=== PATIENT | female | born 1985 | race Caucasian/White ===

== ENCOUNTER → 2020-10-06 12:41 | Outpatient (CLI) | payer BC, SELFPAY ==
--- NOTE | ~2020-10-06 | US_ITS ---
EXAMINATION: US thyroid DATE: 10/06/2020 12:54 INDICATION: Nontoxic goiter, unspecified. TECHNIQUE: Multiple ultrasound images of the thyroid were obtained. COMPARISON: None. FINDINGS: The right thyroid lobe measures 4.7 x 1.5 x 1.4 cm. The left thyroid lobe measures 4.5 x 1.5 x 1.2 c m. In the right thyroid lobe, there is a 7 mm solid, hypoechoic, [id number] nodule with ill-def ined margin without echogenic foci (TI-RADS TR4). IMPRESSION: 1. Small thyroid nodule, likely not clinically significant. No follow-up is needed. Reviewed, dictated and finalized at location A. IMPRESSION: 1. Small thyroid nodule, likely not clinically significant. No follow-up is nee ded.
== END ==
PROVIDERS: Visit Provider Internal Medicine Endocrinology, Diabetes & Metabolism
DX: E04.1 Nontoxic single thyroid nodule (principal)
CPT/HCPCS: 76536

== ENCOUNTER → 2022-03-29 13:50 | Outpatient (CLI) | payer BC, SELFPAY ==
--- NOTE | ~2022-03-29 | US_ITS ---
EXAMINATION: US pelvic complete DATE: 03/29/2022 14:08 INDICATION: Pelvic pain. Right lower quadrant pain. Comparison:02/15/2012 TECHNIQUE: Multiple transabdominal sonographic images of the pelvis performed. FINDINGS: The uterus measures 11.5 x 3 x 4.8 cm. The endometrial complex measures 8 mm. The right ovary measures 3.3 x 2 x 2.4 cm and the left ovary measures 2.8 x 1.9 x 2.2 cm. There are small follicles in each ovary. Normal doppler signal in both ovaries. There is no free fluid in the pelvis. There are no abnormal masses seen on either side. IMPRESSION: 1. Normal pelvic ultrasound. Reviewed, dictated and finalized at location B. OR INSPECTOR
== END ==
PROVIDERS: PCP Nurse Practitioner Family; Visit Provider Advanced Practice Midwife
DX: R10.2 Pelvic and perineal pain (principal)
CPT/HCPCS: 76856

== ENCOUNTER 2023-04-18 13:48 | Outpatient (CLI) | payer OTHER, SELFPAY ==
--- NOTE | ~2023-04-18 | US_ITS ---
EXAMINATION: US transvaginal DATE: 04/18/2023 14:19 INDICATION: Dysmenorrhea with irregular menstruation TECHNIQUE: Multiple transabdominal and endovaginal sonographic images of the pelvis were obtained. COMPARISON: None. FINDINGS: The uterus measures 9.2 x 4.3 x 5.2 cm. The endometrial complex measures 12 mm in thickness. There a re 3 small anechoic nabothian cysts at the cervix largest measuring 7 mm in maximal diameter. There i s a small amount of anechoic fluid within the endocervical canal which measures up to 2 mm in maximal width. The right ovary measures 3.4 x 2.8 x 3.0 cm. There is are a few anechoic cysts/follicles in t he right ovary the largest measuring 2.3 cm. The left ovary measures 2.3 x 2.1 x 1.6 cm. There is nor mal vascular flow in the ovaries. There is no free fluid in the pelvis. IMPRESSION: 1. Minimal fluid within the endocervical canal along with a few anechoic nabothian cysts at the cervi x and right ovarian cysts/follicles. Reviewed, dictated and finalized at location B. IMPRESSION: 1. Minimal fluid within the endocervical canal along with a few anechoic naboth minda cysts at the cervix and right ovarian cysts/follicles.
== END 2023-04-18 13:49 ==
PROVIDERS: PCP Internal Medicine Endocrinology, Diabetes & Metabolism; Visit Provider Internal Medicine Endocrinology, Diabetes & Metabolism
DX: N88.8 Other specified noninflammatory disorders of cervix uteri (principal); N83.201 Unspecified ovarian cyst, right side
CPT/HCPCS: 76830